=== PATIENT | male | born 2000 | race African-American/Black ===

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

== ENCOUNTER → 2020-02-12 | Outpatient (REF) | payer BC | LOC: M LAB REF 15:20 | PROVIDERS: ATTEND Physician Assistant | DX: J02.9 Acute pharyngitis, unspecified (principal) ==

== ENCOUNTER 2021-03-21 02:19 | Emergency (ER) | payer BC, OTHER ==
[~2021-03-21] VITALS: Ht 182.9 cm; Wt 109.1 kg
[2021-03-21] MEDS ORDERED: ONDANSETRON 4MG/2ML VIAL IV ONE ×2 (02:25→02:55)
[2021-03-21] MEDS: MORPHINE 4 MG/ML 1ML VIAL/SYRINGE (J2270) IV PRN ×2 (02:39→03:02)
[2021-03-21] MEDS ORDERED: KETAMINE HCL 200 MG/20 ML VIAL IV ONE ×2 (02:55→03:50)
[2021-03-21] MEDS ORDERED: NS 1,000 ML IV SCH (02:55)
[2021-03-21] MEDS: propofoL 200 MG/20 ML VIAL IV.PROC PRN ×3 (03:30→03:45)
--- NOTE | 2021-03-21 04:02 | REPVR ---
PROCEDURE INFORMATION: Exam: XR Right Shoulder Exam date and time: 03/21/2021 2:50 AM Age: 21 years old Clinical indication: Pain; Shoulder; Right; Additional info: Shoulder pain TECHNIQUE: Imaging protocol: XR Right shoulder. Views: 2 or more views. COMPARISON: No relevant prior studies available. FINDINGS: Bones/joints: There is an anterior dislocation of the humeral head at the glenohumeral joint. Assessment for fracture is limited due to overlapping structures. There is suspicion for a Hill-Sachs deformity of the humeral head. The acromioclavicular joint appears unremarkable. Soft tissues: There is subtle lucency adjacent to the humeral head, which may represent gas within the joint or the soft tissues. IMPRESSION: Anterior dislocation of the shoulder with suspicion for Hill-Sachs deformity. Further evaluation for fracture on post reduction views is recommended. Electronically signed by: Marti Quach On 03/21/2021 04:01:42 AM
--- NOTE | 2021-03-21 04:04 | REPVR ---
PROCEDURE INFORMATION: Exam: XR Right Shoulder Exam date and time: 03/21/2021 3:54 AM Age: 21 years old Clinical indication: Pain; Shoulder; Right; Additional info: Post reduction TECHNIQUE: Imaging protocol: XR Right shoulder. Views: 1 view. COMPARISON: CR Shoulder, complete RIGHT 03/21/2021 2:31 AM FINDINGS: Bones/joints: On this single view, the humeral head appears to articulate normally with the glenoid, with reduction of the previously seen anterior dislocation. There is a mild contour deformity of the lateral aspect of humeral head, consistent with an impaction fracture related to the dislocation, a Hill-Sachs deformity. Soft tissues: The soft tissues appear unremarkable. No soft tissue gas is identified. IMPRESSION: 1. Interval reduction of the dislocation. 2. Mild contour abnormality of the humeral head consistent with a Hill-Sachs deformity. Electronically signed by: Marti Quach On 03/21/2021 04:03:58 AM
[2021-03-21 04:46] VITALS: BP 157/70
== END 2021-03-21 05:07 | disposition home or self-care (01) ==
LOC: M ED 02:19
DX: S43.014A Anterior dislocation of right humerus, initial encounter (principal); W10.8XXA Fall (on) (from) other stairs and steps, initial encounter; Y92.009 Unspecified place in unspecified non-institutional (private) residence as the place of occurrence of the external cause; Y93.01 Activity, walking, marching and hiking; Y99.9 Unspecified external cause status
CPT/HCPCS: 23655; 73020; 73030; 93041; 94760; 96361; 96374; 96375; 96376; 99285; J2270; J2405

== ENCOUNTER → 2021-05-18 | Outpatient (CLI) | payer OTHER ==
[2021-05-18 14:36] LABS: BASO % 0.2 % (0.0-1.0); EOS # 0.1 10^3/uL (0.0-0.5); EOS % 1.9 % (0.0-3.0); HEMATOCRIT 42.4 % (42.0-52.0); LYMPH # 1.3 10^3/uL (1.5-5.0); LYMPH % 28.3 % (24.0-44.0); MEAN CORPUSCULAR HEMOGLOBIN 29.1 pg (27.0-33.0); MEAN CORPUSCULAR VOLUME 88.1 fl (80.0-96.0); MONO # 0.7 10^3/uL (0.0-0.8); MONO % 15.1 % (2.0-8.0); NEUTROPHILS # 2.5 10^3/uL (1.5-8.5); NEUTROPHILS % 54.3 % (36.0-66.0); PLATELET COUNT, AUTOMATED 235 10^3/uL (150-450); RED BLOOD COUNT 4.81 10^6/uL (4.30-6.10); WHITE BLOOD COUNT 4.6 10^3/uL (4.0-10.0)
[2021-05-18 15:21] LABS: ALBUMIN 3.8 GM/DL (3.2-5.2); ALT/SGPT 39 U/L (12-78); BILIRUBIN,TOTAL 0.6 MG/DL (0.2-1.0); BLOOD UREA NITROGEN 12 MG/DL (7-18); CALCIUM LEVEL 9.4 MG/DL (8.5-10.1); CARBON DIOXIDE LEVEL 28 MEQ/L (21-32); CHLORIDE LEVEL 105 MEQ/L (98-107); CREATININE FOR GFR 0.88 MG/DL (0.70-1.30); FREE T4 1.02 NG/DL (0.76-1.46); GLOMERULAR FILTRATION RATE > 60.0 (>60); GLUCOSE, FASTING 88 MG/DL (70-100); POTASSIUM SERUM 4.1 MEQ/L (3.5-5.1); SODIUM LEVEL 137 MEQ/L (136-145); THYROID STIMULATING HORMONE 0.823 uIU/ML (0.358-3.740); TOTAL 25(OH) VITAMIN D 28.5 NG/ML (30.0-100.0); TOTAL PROTEIN 7.8 GM/DL (6.4-8.2)
[2021-05-18 15:40] LABS: HEMOGLOBIN A1c 5.3 %
== END ==
LOC: M LAB 13:26
PROVIDERS: ATTEND Family Medicine
DX: Z13.29 Encounter for screening for other suspected endocrine disorder (principal)

== ENCOUNTER → 2021-06-03 | Outpatient (CLI) | payer OTHER ==
[~2021-06-03] MED LIST: ISOVUE-300 61% 50ML VIAL As Ordered ONE; PROHANCE 279.3MG/ML 5ML VIAL As Ordered ONE
--- NOTE | 2021-06-03 17:24 | REP ---
INDICATION: ANTERIOR DISLOCATION OF RT HUMERUS ? LABRUM TEAR. COMPARISON: None. TECHNIQUE: Coronal oblique T1, T2 fat sat, sagittal oblique T2 fat sat, axial T2 fat sat, gradient echo. Post arthrogram T1 fat sat and T2 fat sat in multiple planes. FINDINGS: Rotator cuff: No evidence of tear. Acromioclavicular joint: There are mild hypertrophic changes at the acromioclavicular joint. Acromion: Type 2 Biceps Tendon: In bicipital groove, no tenosynovitis. Hill Sach's deformity: There is a small Hill-Sachs deformity. Deltoid muscle: No abnormal signal. Biceps labral complex: Intact. Labrum: There is blunting of the anterior glenoid labrum. No discrete labral tear is seen. Cartilage: No defects. Bone marrow: There is very mild marrow edema of the superolateral humeral head. Joint fluid: No effusion. IMPRESSION: No evidence of rotator cuff tear. There is a small Hill-Sachs deformity with very mild associated marrow edema in the humeral head. There is blunting of the anterior glenoid the labrum. No discrete labral tear is seen. <Electronically signed by Mendoza Spence > 06/03/21 [id number]
--- NOTE | 2021-06-03 17:28 | REP ---
INDICATION: ANTERIOR DISLOCATION OF RT HUMERUS ? LABRUM TEAR. COMPARISON: None TECHNIQUE: The procedure was performed by SHAWNA Galvan, under the direct supervision of Dr. Spence. The benefits and risks of the procedure were explained to the patient, and an informed consent was obtained. Directly prior to the start of the procedure, a formal time-out was completed in the procedure room. The right shoulder joint space was localized using fluoroscopic guidance. The skin was prepped and draped in a sterile fashion. Approximately 5 mL of 1% Lidocaine 10 mg/ml was used as a local anesthetic. Using fluoroscopic guidance, a #22 gauge spinal needle was inserted and advanced into the right shoulder joint space. Approximately 2 mL of Isovue 300 was injected to verify placement. Ten mL of a solution containing 20 mL of sterile saline and 0.15 mL of ProHance was injected into the joint space. The needle was removed and the patient was taken to MRI for post procedural imaging. FINDINGS: The patient tolerated the procedure well and there were no immediate complications. IMPRESSION: Technically successful right shoulder arthrogram. MRI imaging to follow. 0.1 minutes of fluoroscopy time was utilized for this procedure. Some fluoroscopic images are performed with last image hold technology. These images require no additional radiation. <Electronically signed by Maki Olmedo > 06/03/21 [id number] <Electronically signed by Mendoza Spence > 06/03/21 [id number]
== END ==
LOC: M RADPRO 07:04
PROVIDERS: ATTEND Physician Assistant
DX: S43.014A Anterior dislocation of right humerus, initial encounter (principal)
CPT/HCPCS: 23350; 73223; 77002; A9576; Q9967